=== PATIENT | male | born 1955 | race Caucasian/White ===

== ENCOUNTER 2020-12-24 16:28 | Emergency (ER) | payer OTHER ==
[~2020-12-24] VITALS: Ht 182.9 cm; Wt 93.9 kg
[~2020-12-24 16:28] MED LIST: ABILIFY 5 MG TAB5 M1 PO; ACETAMINOPHEN-1 EAC1 PO; AMBIEN5 MG PO; ASA81BEC PO; ASPIR 8181 MG; ATIVAN0.5 MG PO; AUGMENTIN 875-1 EACH PO; B12; BACTRIM DS TAB1 EACH PO; BACTROBAN22 GM TP; CALCIUM PO; CARVEDILOL12.5 MG PO; CINNAMON; CIPRO500 MG PO; CLEOCIN HCL150 MG PO; COMBIVENT RESPIM4 GM IH; FISH OIL; FLEXERIL; FLEXERIL PO; FLOMAX0.4 MG PO; HUMALOG100 UNIT/1 SUBQ; HYDROCODON-ACE1 EAC7 PO; HYDROCODONE; HYDROCODONE-AP1 EAC6 PO; IPRAT-ALBUT 0.5-3 ML INH; LATUDA80 MG PO; LEXAPRO 10 MG T10 M1; LIPITOR 20 MG T20 M1; LIPITOR80 MG PO; LISINOPRIL2.5 MG PO; LISINOPRIL5 MG PO; LOPRESSOR50 MG; MARINOL 2.5 MG2.5 M1 PO; METFORMIN HCL500 MG PO; MULTIVITAMIN; NICOTINE TRANSD21 M1; PLAVIX 75 MG TA75 MG PO; PROCARDIA XL60 MG PO; REMERON15 M2 PO; SYMBICORT160 MCG/4. INH; TESSALON PERLE100 MG PO; TRAMADOL 50 MG50 MG; TRILEPTAL600 MG PO; VALIUM5 MG; VENTOLIN HFA 1818 GM INH
[2020-12-24 17:50] LABS: HEMATOCRIT 39.5 % (42.0-52.0); HEMOGLOBIN 13.4 gm/dL (14.0-18.0); MCH 31.2 pg (26.0-34.0); MCHC 33.9 g/dL (28.0-37.0); MCV 91.9 fL (80.0-100.0); RBC 4.3 mil/uL (4.50-6.00); RDW 14.5 % (10.5-14.5); WBC 6.6 thou/uL (4.0-11.0)
[2020-12-24 17:58] LABS: CALCIUM 8.8 mg/dL (8.5-10.1); CREATININE 2.4 mg/dL (0.7-1.3); POTASSIUM 4.2 mmol/L (3.5-5.1)
[2020-12-24 18:04] LABS: ALBUMIN 3.3 g/dL (3.4-5.0); TOTAL BILIRUBIN 0.3 mg/dL (0.2-1.0); TOTAL PROTEIN 6.9 g/dL (6.4-8.2)
[2020-12-24 18:12] LABS: URINE BILIRUBIN NEGATIVE (Negative); URINE BLOOD NEGATIVE (Negative); URINE CLARITY CLEAR; URINE COLOR YELLOW; URINE GLUCOSE-RANDOM* TRACE (Negative); URINE KETONES NEGATIVE (Negative); URINE LEUKOCYTES-REFLEX NEGATIVE (Negative); URINE NITRITE-REFLEX NEGATIVE (Negative); URINE PROTEIN (DIPSTICK) 2+ (Negative); URINE UROBILINOGEN 0.2 E.U./dl (0.2-1.0)
[2020-12-24 18:18] LABS: AMP/METHAMP Negative (Negative); BARBITURATES Negative (Negative); BENZODIAZEPINES Negative (Negative); COCAINE Negative (Negative); METHADONE Negative (Negative); OPIATES Negative (Negative); PCP Negative (Negative)
[2020-12-24 18:37] LABS: BACTERIA-REFLEX None Seen /HPF (None Seen); CASTS None Seen /LPF (None Seen); CRYSTALS None Seen /LPF (None Seen); SQUAMOUS 0-3 Few /LPF (0-3); URINE RBC 1-2 Rare /HPF (NONE SEEN); URINE WBC-REFLEX 0-5 Rare /HPF (0-5)
[2020-12-25 01:04] VITALS: BP 127/70
--- NOTE | 2020-12-27 07:33 | EKG ---
[place] [address] [address] [place] [address] ELECTROCARDIOGRAM REPORT Name: KISHAN,LAILA SAUNDRA [id number] Admission: 12/24/20 Attend Phys: Discharge: 12/25/20 Date of : 55 Report #: [id number] [facility] ED Test Date: 2020-12-24 Test Time: 18:08:55 Pat Name: LAILA HOLLEY Department: Room: Gender: Video Technician: : 1955 Requested By: Ruslan Anne Order Number: [id number] MD: Nain Pak Measurements Intervals [place] Rate: 53 P: 43 IL: 215 QRS: -39 QRSD: 100 T: 40 QT: 470 QTc: 442 Interpretive Statements Sinus rhythm Borderline prolonged [place] interval Abnormal R-wave progression, early transition No previous ECG available for comparison Electronically Signed On 12-27-2020 7:33:10 WASHING MACHINE LOADER AND PULLER by Nain Pak [email or web address] <ELECTRONICALLY SIGNED> By: Nain Pak MD, [facility] 12/27/20 0733 1808 1808 Nain Pak MD, FACC /EPI
--- NOTE | 2020-12-27 07:33 | EKG ---
[place] [address] [facility] [place] [address] ELECTROCARDIOGRAM REPORT Name: LAILA HOLLEY III [facility] [id number] Admission: 12/24/20 Attend Phys: Discharge: 12/25/20 Date of : 55 Report #: [id number] [facility] ED Test Date: 2020-12-24 Test Time: 18:08:55 Pat Name: LAILA HOLLEY Department: Room: Gender: Canning Machine Operator: : 1955 Requested By: Ruslan Anne Order Number: [id number] MD: Nain Pak Measurements Intervals [place] Rate: 53 P: 43 DC: 215 QRS: -39 QRSD: 100 T: 40 QT: 470 QTc: 442 Interpretive Statements Sinus rhythm Borderline prolonged [place] interval Abnormal R-wave progression, early transition No previous ECG available for comparison Electronically Signed On 12-27-2020 7:33:19 MULTIMEDIA ENGINEER by Nain Pak [email or web address] <ELECTRONICALLY SIGNED> By: Nain Pak MD, [facility] 12/27/20 0733 1808 1808 Nain Pak MD, FACC /EPI
== END 2020-12-25 01:06 ==
LOC: ER 16:28
PROVIDERS: Nurse Practitioner Family
DX: R45.1 Restlessness and agitation (principal); Z20.822 Contact with and (suspected) exposure to COVID-19; I13.2 Hypertensive heart and chronic kidney disease with heart failure and with stage 5 chronic kidney disease, or end stage renal disease; N18.6 End stage renal disease; E11.22 Type 2 diabetes mellitus with diabetic chronic kidney disease; F31.9 Bipolar disorder, unspecified; I25.10 Atherosclerotic heart disease of native coronary artery without angina pectoris; F17.210 Nicotine dependence, cigarettes, uncomplicated; Z86.73 Personal history of transient ischemic attack (TIA), and cerebral infarction without residual deficits; Z98.890 Other specified postprocedural states; Z86.718 Personal history of other venous thrombosis and embolism; Z79.82 Long term (current) use of aspirin; Z79.4 Long term (current) use of insulin; Z79.891 Long term (current) use of opiate analgesic; Z79.899 Other long term (current) drug therapy

== ENCOUNTER 2020-12-24 17:22 | Inpatient (IN) | payer OTHER ==
[~2020-12-24] VITALS: Ht 182.9 cm; Wt 93.7 kg
[2020-12-25 02:28] VITALS: BP 151/69
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
--- NOTE | 2020-12-25 08:54 | NUR ---
12-25-2020--Paperwork reviewed for patient. Will complete an assessment when group is over this AM. Patient has DPOA paperwork in chart.
--- NOTE | 2020-12-25 10:06 | NUR ---
12-25-2020--1005--Went to get patient to do an assessment. Patient was asleep in his room.
[2020-12-25 10:10] VITALS: BP 146/61
--- NOTE | 2020-12-25 10:25 | NUR ---
12-25-2020--1030--Call to sister Didi SAMAYOA. ([phone]) Gathered a lot of information from her. She reports he is very manipulative and uses humor to get by with degrading people, making fun of them and verbal harrassment. She reports (their father) was the same way. 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 He knows the right thing to say and how/when to say it.
[2020-12-25 10:47] LABS: CHOLESTEROL 125 mg/dL (<200); HDL CHOLESTEROL 36 mg/dL (>40); LDL CHOLESTEROL 56 mg/dL (<100); TC:HDL 3.5 Ratio (Not establshd); TRIGLYCERIDE 168 mg/dL (<150); VLDL 34 mg/dL (<40)
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
[2020-12-25 17:30] VITALS: BP 146/61
--- NOTE | 2020-12-25 17:42 | NUR ---
Assumed care from shift coordinator this am. Client was in room, and yelled at staff while staff was in shift report, stating that he needed help to use the bathroom. Staff stopped to get client into his wheelchair, and find help to toilet client as shift report still needed to be passed on. Client stated that he could not walk or make it to the restroom on his own. After client was oriented in chair, staff explained to client that client needed to wait for further staff after shift report for assist and that briefs and individual clothing could be changed then. Client voiced understanding. After shift report, client was toileted with a three person assist. Client used a commode during this time. Client presented irritable and uncooperative, stating that he wanted to use his wheelchair and did not want to use facility provided wheelchair. It was explained to client that facility provided wheelchair was used for safety concerns. When doing assessments, client presented oriented to self, situation, and year. Client presented irritable, and stated that he was in pain. Tylenol and cyclobenzaprine were given at this time as ordered in MAR prn. Client denied depression and anxiety, and stated that he was not suicidal or homicidal. Client denied visual and audio hallucinations at this time. Client stated that he wanted a new pair of shoes from his sister, and that he did not want to be in facility. Client was encouraged to follow facility guidelines, and encouraged to participate while he was in care. Client lung sounds were clear; bowel sounds present. This nurse spoke to LOUISA Macias about client's pain, and medication reconsiliation. Client's medications were changed during this time to fit client needs by LOUISA Macias. Client was also put on sliding scale insulin and hydrocodone prn by Dr. Gunter in addition to evaluations by PT and OT, and Dietary being added. Client was informed of this. During dinner time, client's blood glucose presented at 123 and client did not need insulin. Client was given prn hydocodone at this time for pain of 6/10 as he stated previous pain relief was wearing off. Client was informed of new medication options again, and taught about sliding scale insulin. No further concerns at this time.
--- NOTE | 2020-12-25 19:08 | NUR ---
ASSESSMENTS AND NOTES REVIEWED BY SANJAY
[2020-12-25 20:43] VITALS: BP 101/40
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
[2020-12-26 09:46] VITALS: BP 142/71
[2020-12-26 13:46] VITALS: BP 142/71
[2020-12-26 16:33] VITALS: BP 115/55
[2020-12-26 16:34] VITALS: BP 112/51
[2020-12-26 16:35] VITALS: BP 143/81
[2020-12-26 17:17] LABS: ALBUMIN 3.2 g/dL (3.4-5.0); CALCIUM 8.7 mg/dL (8.5-10.1); POTASSIUM 4.7 mmol/L (3.5-5.1); TOTAL BILIRUBIN 0.3 mg/dL (0.2-1.0); TOTAL PROTEIN 6.6 g/dL (6.4-8.2)
--- NOTE | 2020-12-26 18:08 | NUR ---
Resummed care from overnight shift this am. Client was in bed resting at this time. When staff came for assessment, client present agitated and hostile. Client was oriented 4x during this time. Client stated that he had general weakness during this time, and stated that he could not walk. Client was assisted in repositioning in bed at this time, and assessment continued. Client denied any depression and anxiety, stating "how do you define anxiety" when asked. Staff defined the word, and client stated "no" to both. Client denied any visual and audio hallucinations as well. Client denied any si/hi at this time. Client stated that he had lower extremity pain. PRN medication was given for this at this time. Dressing changed on client's wound on heel. Metoprolol held due to pulse of 60 and client being on other blood pressure medications. When encouraged to join group, client stated that he would. Staff assisted client in putting on his prosthetic leg, and to sit up in bed. When attempting to stand up, client voiced weakness. Assistance was called to help with client. When assistance came, client refused to stand up, and stated to staff that was helping, "you fucking bitch- do you get off on yelling at old people-you niger ass bitch-fucking cunt" and continued to scream and repeat these profanties when encouraged to sit back down. Client was reoriented to environment, and asked to use more appropriate language at this time. Client decided to stay in room during this time, and declined to get up. Before lunch, staff came up to client to once again assist him. Client voiced weakness, and bp was 105 systolic at this time. LOUISA Macias was informed of this and Dr. Gunter was paged. New parameters in for BP medications per Dr. Julito Gunter, and orthostatic blood pressure was ordered. Client was assisted with this, with lying, sitting, standing bp being respectively 115/55, 112/51, and 143/81. Three person assist needed to help client stand. After this, client was helped in activity area. Dr. Gunter put in laboratory orders to confirm blood work, as client voiced previously voiced having weakness and cirrohsis of liver when bp was low. Client also voiced history of hep C, stating that he didn't think this impacted him. Client stated that he "only drank for a few years" so he "wasn't sure how he got it." Client labs drawn by laboratory this evening. Client has been in activity area resting and watching tv since late afternoon. No further concerns at this time.
[2020-12-26 20:41] VITALS: BP 112/52
--- NOTE | 2020-12-26 22:43 | NUR ---
At onset of shift pt was resting in bed awake. This shift pt was alert and oriented x3. Affect was constricted. Pt was compliant with medications and vital signs. Pt complained of feeling weak and tired. Blood sugar was 119 and vital signs were within normal limits. Dr. Gunter was made aware of this on day shift. Pt talked with automotive service writer about how he is angry and he feels that he needs medication to help control his anger. Pt talked about how he does not want to spend the holidays alone and feels this may be making him feel more depressed and more angry. Pt shared that he did "cuss out" day staff because he did not like how staff was speaking to him. Pt shared that his children don't really talk to him because he's "too much to bother with." Pt endorsed feeling depressed. RN offered support. Fall precautions are in place. Will continue to monitor.
[2020-12-27 08:00] VITALS: BP 109/59
--- NOTE | 2020-12-27 08:59 | NUR ---
NO OT NEEDED FOR ADLS. SEE OT VARIANCE TODAY
--- NOTE | 2020-12-27 10:18 | NUR ---
Nutrition: pt admitted to [facility] with agitation and seen due to wound risk. Has been cussing and verbally abusive. RD did not visit personally. Eating 75-100% of meals so far on unit, Carb controlled diet. Wound is nonhealing right foot diabetic ulcer. Pt with hx of Left BKA, CVA, bipolar, PVD. On MVI, B12, Fe, SSI, glipizide. BG 98-251. Will offer ensure max daily to support wound healing needs. Nsg voices good intake of fluids. Place as low risk.
--- NOTE | 2020-12-27 13:38 | NUR ---
12-27-2020--3984--Called [facility] to acquire fax number so updates can be sent to them. SW no in. Left message to call me back with the number.
--- NOTE | 2020-12-27 15:02 | NUR ---
HAS BEEN COOPERATIVE AND PLEASANT SO FAR THIS SHIFT. DID BECOME MILDLY UPSET/IRRITABLE WHEN REQUESTED PAIN MEDICINE AT 1000 AND INFORMED THAT IT WOULD BE APPROX 2 MORE HOURS BEFORE HE COULD HAVE IT STATING ANGRILY TO THIS NURSE "AND THEY WONDER WHY I YELL AT PEOPLE-I AM IN PAIN GODDAMMIT"REQUESTED AND RECEIVED NORCO 5/325MG PO PRN AT 1200 FOR LEFT FOOT PAIN RATED A 7 ON 1-10 SCALE-DOES REPORT GOOD IMPROVEMENT OF SYMPTOMS APPROX 45 MINUTES AFTER ADMINISTRATION RATING PAIN A 3-4. HAS BEEN ATTENDING SCHEDULED GROUPS WITH PROMPTING/SUPPORT. DENIES SI/SH/HI. APPETITE FAIR. ABLE TO TRANSFER SELF TO/FROM TO [id number] OR BED WITH SBA X1
[2020-12-27 19:51] VITALS: BP 143/78
[2020-12-27 20:10] VITALS: BP 143/78
[2020-12-27 23:23] LABS: URINE BILIRUBIN NEGATIVE (Negative); URINE BLOOD NEGATIVE (Negative); URINE CLARITY CLEAR; URINE COLOR YELLOW; URINE GLUCOSE-RANDOM* NEGATIVE (Negative); URINE KETONES NEGATIVE (Negative); URINE LEUKOCYTES NEGATIVE (Negative); URINE NITRITE NEGATIVE (Negative); URINE PROTEIN (DIPSTICK) 2+ (Negative); URINE UROBILINOGEN 0.2 E.U./dl (0.2-1.0)
[2020-12-27 23:44] LABS: BACTERIA None Seen /HPF (None Seen); CASTS None Seen /LPF (None Seen); CRYSTALS None Seen /LPF (None Seen); MUCUS 0-3 Light strn/LPF (None Seen); SQUAMOUS 0-3 Few /LPF (0-3); URINE RBC 1-2 Rare /HPF (NONE SEEN); URINE WBC 1-5 Rare /HPF (NONE SEEN)
--- NOTE | 2020-12-28 03:12 | NUR ---
PATIENT HAS BEEN IN HIS ROOM IN BED ALL SHIFT SO FAR. HE IS A/0X4. HE IS LBKA. HE HAS BEEN CALM AND COOPERATIVE. HIS ACHS CHECK WAS 184 AND LISPRO 3UNITS WAS GIVEN. PATIENT TOOK HIS OTHER MEDS WHOLE WITH WATER. PATIENT HAS DENIED PAIN TONIGHT AND DENIES SI/HI/AVH. HE HAS A HEALING DARKENED AREA ON BOTTOM OF HIS RIGHT FOOT WITH NEW ORDERS TO CLEANSE WITH NS OR WOUND BUSINESS APPLICATIONS DEVELOPER AND APPLY BETADINE TOO AND LEAVE ESTRELLA. THIS TO BE DONE IN AM. PATIENT HAS SWELLING IN HIS RIGHT ANKLE AND FOOT OF 2+ BUT SKIN IS DRY,WARM AND PEDAL PULSE 2+. PATIENT HAS HAD UA COLLECTED FOR ANALYSIS AND SENT TO LAB TO BE RAN TONIGHT. IT WILL BE CULTURED IF INDICATED. PATIENT HAS YOUNG AT BEDSIDE FOR NURSE CALL. BED IN LOW POSITION AND BED ALARM IS ON. ROUTINE ROUNDS TO ASSESS SAFETY AND STATUS OF PATIENT.
[2020-12-28 06:18] LABS: ALBUMIN 2.6 g/dL (3.4-5.0); CALCIUM 8.5 mg/dL (8.5-10.1); CREATININE 2.7 mg/dL (0.7-1.3); PHOSPHORUS 4.7 mg/dL (2.5-4.9); POTASSIUM 4.6 mmol/L (3.5-5.1)
[2020-12-28 09:24] VITALS: BP 151/75
--- NOTE | 2020-12-28 09:53 | NUR ---
Patient had breakfast in the dayroom, good appetite and fluid intake. He has been continent of urine. Patient has been calm and cooperative. He attended the morning group session and actively participated. He denies having thoughts of SI/HI. When asked if he was feeling depressed, he said "yes, I'm going to be celebrating thanksgiving alone, and they told me I have mild dementia I can't believe that, you either have it or you don't." He was having lowerback pain and phantom leg pain this morning, PRN Hydrocodone given with his morning medications. Order recieved for Miralax, given at 0920. Hyperactive bowel sounds noted. Insulin held this morning due to glucose being 101. His goal for the day is to keep his pain under control. Will continue to monitor patient.
[2020-12-28 19:44] VITALS: BP 134/67
--- NOTE | 2020-12-28 23:17 | NUR ---
PATIENT HAS BEEN CALM AND COOPERATIVE, IS ALERT AND ORIENTED X 4 AND IS COMPLIANT WITH HS MEDICATIONS. PATIENT HAS BEEN RESTING COMFORTABLY IN BED SINCE BEGINNING OF SHIFT.
[2020-12-29 09:25] VITALS: BP 118/74
[2020-12-29 10:14] VITALS: BP 118/74
[2020-12-29 11:56] VITALS: BP 133/68; BP 143/76
[2020-12-29 11:57] VITALS: BP 133/68
--- NOTE | 2020-12-29 12:30 | NUR ---
FINESSE, Dr. Black, and DISPLAYER MERCHANDISE Student Anita participated in a phone meeting with the DPOA Didi. An update was given on the Pt. 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 Dr. Black will enact the DPOA. Didi would like a copy of the enactement letter emailed to her at [email or web address]. It was also discussed that Pt will be ready for discharge Sunday. Didi requested a meeting with the Pt to discuss the DPOA enactment. SW team will follow up.
--- NOTE | 2020-12-29 13:32 | NUR ---
Adan was alert and oriented x4 this shift. He presents as calm, cooperative, and pleasant, yet withdrawn at times. He went to his room periodically throughout the day to lay down in bed and rest. He was cooperative with cares throughout the day and required minimal assistance. He had a large BM this morning and required assistance transferring to his w/c from bed. He was medication and meal compliant this shift, taking pills whole, without difficulty. He received hydrocodone PRN at 0904 with effectiveness. Pt's R foot wound was cleansed with wound cleanser, dried, and betadine was applied. Picture was also taken per orders but unable to print due to tehcnical difficulties. BP and HR were taken per Dr. Cohen, and charted appropriately. Recorders received from [facility] today. Will continue to monitor.
--- NOTE | 2020-12-29 15:28 | HC ---
[facility] [place] [place] [address] CONSULTATION Name: LAILA HOLLEY III Room #: 517-A [facility] IN ..#: [id number] Admission: 12/25/20 Attend Phys: Watson Cohen DO Discharge: Date of : 55 Report #: [id number] THIS REPORT FOR: cc: Tha oFster MD, Mohsen MD Stephens, Thad A. MD ~ DATE OF SERVICE: 12/27/2020 WOUND CARE CONSULTATION PERSONAL PHYSICIAN: Dr. Foster. CHIEF COMPLAINT: Right foot ulceration. HISTORY OF PRESENT ILLNESS: This is a 65-year-old white male who resides in a half-way, who recently has been using a wheelchair secondary to a previous left BKA. The patient has now developed a nonhealing ulcer on the plantar aspect of his right foot. The patient himself is an extremely poor historian. The patient does supposedly complained of pain in the bottom aspect of his right foot. The patient was actually admitted to the Geriatric Psych Unit secondary to behavioral changes. The nursing staff deny any other associated wounds. PAST MEDICAL HISTORY: Significant for diabetes mellitus, previous left BKA secondary to previous ulcer, nonhealing ulceration on the plantar aspect of the right foot. Peripheral neuropathy, previous CVA with right-sided hemiparesis, bipolar disease and COPD. CURRENT MEDICATIONS: Multiple, reviewed the patient's medication list. DRUG ALLERGIES: None. SOCIAL HISTORY: The patient smokes half pack of cigarettes daily. Currently resides in a half-way. FAMILY HISTORY: Not pertinent to current medical condition. REVIEW OF SYSTEMS: Unobtainable due to the patient's mildly confused state at this time. PHYSICAL EXAMINATION: VITAL SIGNS: Temperature 36.3, pulse 66, respirations 18, BP 151/75. GENERAL: This is an alert and oriented x 1 person, but not place or time, elderly black male who is in no obvious distress. HEENT: Normocephalic, atraumatic. Mucous membranes are somewhat dry. Pupils are round. Sclerae white. NECK: Without JVD. [facility] [address] [place] [address] CONSULTATION Name: KISHANLAILA [facility] Room #: 517-A [facility] [place] .R.#: [id number] Admission: 12/25/20 Attend Phys: Watson Cohen DO Discharge: Date of : 55 Report #: [id number] LUNGS: Clear. HEART: Regular. ABDOMEN: Soft, nontender. EXTREMITIES: The patient moves all extremities without difficulty. The patient has a BKA on the left. The plantar aspect of the right foot has an ulceration, which is a mix of granulation tissue and slough. Periwound callus. There is no significant tunneling or undermining. There is moderate serosanguineous drainage noted without significant odor. No other associated ulcerations are noted. Left BKA stump is intact. NEUROLOGIC: Cranial nerves 2-12 grossly intact. Motor and sensory grossly intact. LABORATORY DATA: Albumin 2.6. IMPRESSION: 1. Diabetic ulcer of the right lateral foot. 2. Type 2 diabetes. 3. Chronic pain syndrome. 4. Hypertension. 5. Bipolar disease. 6. History of cerebrovascular accident. 7. History of left below-knee amputation. 8. Protein-calorie malnutrition -- very mild and albumin of 3.2. PLAN: We will start Betadine and leave it open to air to the right and lateral foot ulceration. Have the patient elevate his foot as much as possible. Psychiatry is following the patient for the bipolar disease. We should maximize the patient's oral protein supplementation for healing. We will continue all other current medications. Appreciate ability to consult. <ELECTRONICALLY SIGNED> By: Adrian Zee MD 12/29/20 1528 1625 [id number] Adrian Zee MD /nt
--- NOTE | 2020-12-29 20:26 | NUR ---
AT ABOUT 1945 PATIENT CAME TO DOOR AND STARTED TO COME IN THE HALLWAY, I ADVISED PATIENT THATHE WAS IN QUARRANTINE AND NEEDED TO STAY IN ROOM, PATIENT BEGAN TO YELL AT ME SAYING NO ONE HAS CHECKED ON HIM ALL DAY, I TRIED TO EXPLAIN THAT WE JUST HAD SHIFT CHANGE AND I WAS UNSURE OF WHAT HAPPEN TODAY BUT PATIENT CONTINUE TO YELL AND ARGUE WITH ME, WANTED HIS MEDS AND A PAIN PILL WHICH I WENT AND GOT BUT THEN PATIENT STILL WANTED TO ARGUE AND WOULD NOT BACK UP IN ROOM SO I COULD COME IN AND GOWN UP, CALLED [facility] AND TOLD HER WHAT WAS GOING ON AND SHE ADVISED I CALL SECURITY WHO CAME UP AND TRIED TO TALK TO PATIENT BUT HE WANTED TO ARGUE WITH THEM ALSO. PATIENT FINALLY BACKED UP IN ROOM SO I COULD GOWN UP AND HS MEDICATION GIVEN WELL 3 UNITS OF INSULIN FOR BG OF 176.
[2020-12-29 23:09] VITALS: BP 173/83
[2020-12-30 09:34] VITALS: BP 165/71
--- NOTE | 2020-12-30 11:41 | NUR ---
Alert and orientated X4. Calm and cooperative. Able to stand with assistance. Denies SI/HI. States he fell this AM and that his "liver" is hurting. Breath sounds clear. Sporadic, congested cough. No s/o nasal flaring or retractions, no increased work of breathing. Reg HR auscultated. Color pink with brisk capillary refill and palpable peripheral pulses. HTN this AM 170s, will recheck around 12. +1 edema in R leg. Yellow urine per commode. Active bowel sounds over soft, rounded abdomen. Scab on R foot.
[2020-12-30 13:30] VITALS: BP 149/78
[2020-12-30 16:15] VITALS: BP 140/73
[2020-12-30 16:17] VITALS: BP 129/76
[2020-12-30 16:18] VITALS: BP 165/71
[2020-12-30 19:13] VITALS: BP 128/66
--- NOTE | 2020-12-30 20:30 | NUR ---
Patient care resummed, patient located in his room lying low-fowlers in bed. Patient was reported as COVID+ per results on 12/29/20 so isolation precautions were in place. Patient appears calm, cooperative, pleasent, but did verbalize being upset with the staff prior to shift change. Patient denied SI/HI/AVH, depression, and anxiety, A&O*4, 2+ pitting edema in LRE, Left BKA with prosthsis, limb alert with right arm after previous stroke. Lungs auscultated with BLL presenting diminished, Abdomen soft, nondistended with bowel sounds present*4. Patient stated he was in pain, rating as moderate pain. Pain located mainly in the Right Flank, 5/325mg Hydrocodone was given. Pain also stated being in the Right leg which pt. stated was nothing like his side pain. Patient informed DIRECTOR WORK he had fallen during the night, attempting to go to the restroom on his commode. Patient stated he got up from bed after ringing his "call-courtney" for an extended time and no one came, he couldn't wait any longer so he attempted walking by himself. Patient states "I got up, and started walking and accidently peed a little on the floor," then states "after using the bathroom on the way back I fell landing on his Right side." DIRECTOR WORK continued assessment and noted a 2.5inch bruise on the Right Flank, exactly below the bottom rib. When DIRECTOR WORK examined the area, patient griminced and tensed up when palpated. Also noted during skin assessment was a fresh looking skin tear to the Right elbow and Right knee. As well as a current diabetic ulcer to the Right ankle. DIRECTOR WORK notified of findings and DIRECTOR WORK was informed once the pt's PCR results came in to noitify him so we can move forward with tests. @6020 was paged in regards to PCR results. DIRECTOR WORK recieved call back @1346, a Chest PA/Lateral/Routine X-RAY was ordered, along side a onetine dose of Hydrocodone 7.5/325mg for severe pain. Pt reported pain rated as a 9 in Right flank, and was located in bed in the position in tears. was then paged @0256 and again at @1416, DIRECTOR WORK recieved call back @ 1420. Dr.Karu spanglereed with 's orders and pending results of XRAY will define how we proceed. DIRECTOR WORK then notified Nurse Acetylene Cutter Suzette of current situation on personal cell phone on how to proceed with documentation. DIRECTOR WORK was informed to fill out a Verge Report and that Camera Footage will be reviewed. Patient's V/S taken multiple times throughout day for possible changes and VSS. Orthostatic V/S were also taken. Patient did continue to report SOB and Pain rating of an 8/9. Patient was ordered a PRN Albutoral Sulfate 18g [id number], Hydrocodone 7.5/325mg [id number], and a onetime dose of 30mg Toridol IM for Pain management and breathing comfort. Patient was able to finally rest comfortably after the IM Toridol was given;per 's Telephone order. Wound care was given to Right ankle and photos taken for chart. Will continue to monitior this patient for infection, safety, and behvaviors.
--- NOTE | 2020-12-31 05:12 | NUR ---
Assumed care of patient at 1900. Patient calm et cooperative this shift. Isolated in room most of shift. Ambulates via w/c. VSWNL. Health assessment with no abnormalities other than noted previously. Patient received Hydrocodone 7.5/500mg PRN at 0510 this shift for flank pain 09/14. Will assess response at later time. Patient denies SI/HI/AVH at present time. Extra large bowel movement recorded this shift. Patient had previously stated that his bowel movements were santoyo in color but FEDERAL JUDGE states no abnormal color noted to bowel movement this shift. Currently resting in bed with eyes closed. Will continue to monitor per unit protocol.
--- NOTE | 2020-12-31 07:44 | NUR ---
12-30-2020--1245--Saw patient in Dayroom. i asked how he was and he stated "hurting". I asked if it was his leg and he stated no it was his ribs. I asked if he fell and he stated two days ago. I advised patient to let RN know about the pain. He was agreeable to this. I will also mention it to his RN.
--- NOTE | 2020-12-31 07:50 | NUR ---
12-31-2020--0750--Talked to patient's RN and told her patient had told me his ribs hurt. She stated he told her also.
[2020-12-31 09:17] VITALS: BP 125/67
[2020-12-31 09:53] VITALS: BP 125/67
--- NOTE | 2020-12-31 10:00 | NUR ---
12-31-2020--1000--Call from Didi (DPOA) wondering if the doctor had enacted the DPOA and if she needed to contact the NH and she stated 1500 will be okay on 01-03-2021 for the family meeting. I explained that I had been sendng updates to the [place] and she wouldn't need to call them. I explained she can get specific notes by going through medical records, but the DC will have medication, follow up, diagnosis on it and she will get a copy. Didi's number is [phone].
--- NOTE | 2020-12-31 10:23 | NUR ---
12-31-2020--1025--Call to DPOA to advise letter enacting the DPOA has been written and I will email it to her: [email or web address]. It was e-mailed. She also provided her mailing address: [address] [facility] [address]. Family meeting scheduled with Didi for 01-03 at 3:00 PM. Updates will be sent to NH and I will let them know the prospective DC date 01-03 and determine what time they want.
--- NOTE | 2020-12-31 10:54 | NUR ---
RESUMMED CARE FROM OVERNIGHT SHIFT THIS AM, PATIENT IN DAY ROOM SITTING QUIET. PATIENT ATE BREAKFAST TOOK MEDICATION WITHOUT INCIDENCE, PATIENT ALERT ORIENTED TIMES 4. PATIENT DENIES SI/HI/AH/VH AT PRESENT, PATIENT STATES HE HAS DEPRESSION AND ANXIETY. HE IS UNSURE WHY HE FEELS THIS WAY PATIENTS ABDOMEN SOFT; BOWEL SOUNDS PRESENT. PATIENTS LUNGS CLEAR PATIENT HAS NOT DISPLAYED ANY BEHAVIORS. WILL CONTINUE TO MONITOR PATIENT FOR SAFEY AND BEHAVIORS.
[2020-12-31 19:35] VITALS: BP 142/84
--- NOTE | 2021-01-01 05:35 | NUR ---
Assumed care of patient at 1900. Pt calm et cooperative this shift. Took all medications whole without difficulty. Ambulates with assistance of w/c. OLE. Health assessment with no abnormalities other than noted previously. HS blood sugar of 179 et was given 3 units of Lispro per sliding scale. PRN Hydrocodone 7.5/500mg given this shift at 2030 et 0520 due to pain of 8/10. Partial relief of pain symptoms one hour after administration each time. Pt denies SI/HI/AVH at present time. Currently resting in bed with eyes closed. Will continue to monitor per unit protocol.
[2021-01-01 09:34] VITALS: BP 155/69
[2021-01-01 10:39] VITALS: BP 155/69
--- NOTE | 2021-01-01 13:51 | NUR ---
Check in with patient - Patient expressed wanting to take a shower and get a shave. The patient stated he is [place] and being clean cut is part of the culture. The patient stated he hasn't gotten angry as he has done so in the previous placement; however, he expressed getting frustrated with asking about the shower and shave and not getting any results. The patient feels he is listened to when he is angry. The SW talked with the patient about having the right to be angry but expressing it appropriately. The patient is unsure if he will return to the prior placement but states that he does not want to.
--- NOTE | 2021-01-01 17:38 | NUR ---
Adan was alert and oriented x4 this shift. He presented as calm and cooperative yet voiced multiple complaints and frustrations since being admitted to the hospital. He was medication and meal compliant this shift, without difficulty. He wished to shower and shave this shift which pt was educated would be done today. Pt was shaved but due to pt making multiple inappropriate comments to female staff, staff waited for male tech to get here mid shift to give pt a shower. Pt wished to apply his lidocaine patch after the shower as it would come off otherwise, therefore lidocaine patch was applied late this afternoon after pt's shower. Pt did not receive insulin this shift as BG's were all below 150. Pt guaifenesin due to c/o sore throat. Pt had c/o generalized pain due to his recent fall and chronic pain; pt received PRN hydrocodone with effectiveness at 1212 this shift. Pt otherwise did not voice any physical complaints, will continue to monitor.
[2021-01-01 18:23] VITALS: BP 116/66
--- NOTE | 2021-01-02 05:18 | NUR ---
Assumed care of patient at 1900. Pt calm et cooperative this shift. Took medications whole without difficulty. Ambulates with assistance of w/c. OLE. Health assessment with no abnormalities other than previously noted. Continues to have productive cough. Hydrocodone 7.5/500mg PRN given along with Guafenesin tablet PRN at 0230 this shift. BS 202 at 1850. Pt given 4u of Lispro per sliding scale. Pt denies SI/HI/AVH at present time. Currently resting in bed with eyes closed. Will continue to monitor per unit protocol.
[2021-01-02 07:11] VITALS: BP 132/86
[2021-01-02 07:29] VITALS: BP 93/71
[2021-01-02 10:17] VITALS: BP 132/88
--- NOTE | 2021-01-02 10:52 | NUR ---
10:53AM - Updates (01/01 & 01/02) faxed to [employer]
--- NOTE | 2021-01-02 12:11 | NUR ---
Resummed pt care from lease administrator this am. Client was in activity area eating breakfast and watching tv this morning. When asked orientation questions, client presented as talkative, and answered all questions with orientation being x4. Client voiced having some depression due to the holiday season, stating that he missed his family and missed having large get togethers. Client did not voice anxiety at this time. Client voiced pain at 7/10, and stated that he was having breakthrough pain- last dose of hydrocodone before this was 238 am. Client was given acetaminophen for this, which provided partial pain relief. Client denied any suicidal or homicidal ideation. Client denied any visual or audio hallucinations at this time. Lungs sounds were clear with a non-productive cough. Cepacol was given for this. Bowel sounds present. Last BM 01/02/21. During assessment, client was asked to give full attention to assessment, and to stop flirting with staff. Client stated "I wish these cameras weren't here- I don't want to get you in trouble" "I'm [place], and we're known for being romantic" "I always like the girls younger than me." Client was asked to stop inappropriate comments, and pt education was given on appropriate behavior. Client needs reinforcement at this time, as client has continued statements about wishing there was a lack of cameras and did not have shirt on when this staff entered room, declining to put one on when asked. Client was given hydrocodone and cepacol for pain and cough @1130. Prn inhaler was used as well prior. Cough medication given to help relieve cough at lunch time as well. Client voiced concerns during lunch that he did not like the menu, and asked to change menu. Client was informed that 1130 was too late to change menu, but that staff could provide box lunch and snacks. This was provided to client at this time, and client was asked to fill out dinner menu in advance so that dinner would be called in beforehand to help accomodate needs. When staff was attempting to write note, and put in dinner menu, client commented the following: "I have to go home with you; you aren't right." "I can't help it." "It's your fault." And stuck tongue out at staff at this time, at 12:36, while this STOCK OR DELIVERY CLERK was writing note. Client was asked to voice appropriate behavior again and encouraged to watch television in the day room as a distraction. Client voiced, "Doctor Nina- did I already have my cough medication" while this nurse asked him to go to activity area. Client was corrected, and informed that this staff was STOCK OR DELIVERY CLERK staff, not MD. Client stated "I know; I'm kidding." Client was also informed of the medications he has already gotten for cough and sore throat. Client voiced understanding and went to go watch television after this. Dinner menu was called in by Investment Banker shortly after this. No further concerns.
--- NOTE | 2021-01-02 14:05 | NUR ---
During group, patient complained of having chest pains. SW informed nursing staff who came checked his vitals. After vitals were checked, the patient talked to the SW about being frustrated with the nursing staff.
[2021-01-02 19:50] VITALS: BP 132/88
--- NOTE | 2021-01-03 02:03 | NUR ---
PATIENT CARE WAS RESUMED AT 1900. HE IS ALERT AND ORIENTED. ABLE TO VERBALIZE HIS NEEDS. HE IS CONTINENT OF BOWEL AND BLADDER. AMBULATES WITH WALKER. HE DEINES AVH/SI/HI. HE IS A MAX ASSIST WITH CARE. HE C/O PAINS AND PRN PAIN MED GIVEN WITH SOME GOOD EFFECT. ABD IS SOFT, LUNGS ARE CLEAR ON AUSCULTAION. ABD IS SOFT AND NONE TENDER. BED IS LOCKED, LOW AND ALARMED. TOOK HIS MEDS WHOLE.
[2021-01-03 08:36] VITALS: BP 155/74
--- NOTE | 2021-01-03 10:08 | NUR ---
Followup; eating consistently >75% of meals. BG well controlled and wts are stable around 206 lb. Low nutrition risk
--- NOTE | 2021-01-03 10:51 | NUR ---
RT Progress Note- Sen has been active in the therapeutic milieu as well as recreation therapy groups. He does not resist participation and is cordial with peers on unit. Sen has been able to identify that his responses to anger are not appropriate and has improved in insight and ideas of ways to cope and respond. DIRECTOR OF PUBLIC HEALTH will continue to encourage progress and participation throughout his admission.
--- NOTE | 2021-01-03 15:22 | NUR ---
ALERT AND ORIENTED X4 TODAY-SOME MILD IRRITABILITY/AGITATION IN THE FORM OF VERBALIZING TO NURSING STAFF FRUSTRATION OVER UNIT/HOSPITAL RULES "NICOTINE AND CAFFEINE ARE ALL I NEED"DENIES SI/SH/HI. DOES REPORT FEELING "A LITTLE PEEVED" D/T BELIEVING HE WAS BEING DISCHARGED TODAY. COTNIUING TO REPORT GENERALIZED FOOT PAIN RATED 7-10 PRIOR TO RECEIVING NORC0-DECREASING TO BELOW 5 AFTER ADMINISTRATION OF PRN NORCO 7.5/325 AT 0745 AND REPEATED AT 1455
--- NOTE | 2021-01-03 15:28 | NUR ---
REPORTED BY PT TO BE OBSERVED TRANSFERING SELF FROM WC TO BED-PT DID CONFIRM THIS WHEN ASKED BY NURSING STAFF STATING "I DON'T WANT TO BOTHER YOU GUYS-I'M GETTING STRONGER" REMINDED OF RECENT REPORTED FALL ON DOCUMENT CONTROL COORDINATOR AND FALL PRECAUTIONS INCLUDING ASKING FOR ASSISTANCE BEFORE TRANSFERING TO/FROM BED REVIEWED. PT ALERRT AND ORIENTED X4 STATES HE UNDERSTANDS -DENIES QUESTIONS.
--- NOTE | 2021-01-03 15:33 | NUR ---
01-03-2021--1500--Family meeting with patient's Didi SAMAYOA, the doctor, the [facility] general intern and this worker. Discussed possible DC Sunday, . or Sunday depending on berhaviors the next few days. Updates were sent on Sunday and I will send updates on Sunday to [facility].
[2021-01-03 19:41] VITALS: BP 155/69
[2021-01-03 19:45] VITALS: BP 155/69
--- NOTE | 2021-01-04 01:08 | NUR ---
PATIENT AWOKE MOANING AT 0025. WHEN I ASKED WHAT WAS WRONG HE STATES HE DOESN'T FEEL LIKE HE CAN GET ENOUGH AIR AND IS HARD TO BREATHE. I ELEVATED PATIENT'S HOB MORE AND LUNGS SOUND CLEAR BUT CAN HEAR CONGESTION IN AIRWAYS THAT MOVES AND CLEARS SOME WITH COUGH. 02% IS 98 AND PULSE IS 64. SAT PATIENT UP ON SIDE OF BED AND RELISTENED TO LUNGS. LUNG BASES SOUND CLEAR. ALBUTEROL INHALER 2 PUFFS GIVEN TO PATIENT AFTER INSTRUCTION ON HOW AND WHEN TO INHALE THE MED. PATIENT UP TO BSC AND PATIENT SAT FOR 15 MINUTES STILL FEELING CONGESTED. PATIENT GIVEN GUAFENISIN PRN TAB AT THIS POINT. PATIENT SAT A FEW MORE MINUTES AND PASSED SOME GAS AND URINATED. PART OF PATIENT'S ISSUE IS THAT HIS RIGHT RIBS ARE BRUISED FROM A FALL PREVENTING HIM FROM COUGHING DEEPLY WITH OUT PAIN. GAVE PATIENT A PILLOW AND DEMONSTRATED AND INSTRUCTED HIM ON HOW TO HOLD PILLOW AGAINST HIS RIGHT RIBS AND CHEST WHEN COUGHING TO HELP SUPPORT HIS SORE RIBS AND HELP HIM COUGH MORE DEEPLY AND EFFECTIVELY. PATIENT ASSISTED BACK TO BED AND HOB UP. PATIENT HAS NOT HAD LABORED BREATHING THRU ALL OF THIS. ENCOURAGED WATER TO HELP THIN SECRETIONS WELL HELP GUAIFENESIN TO WORK MORE EFFECTIVELY. BED IN LOW POSITION AND BED ALARM IS ON. CONTINUING TO MONITOR.
--- NOTE | 2021-01-04 03:39 | NUR ---
PATIENT AWOKE WITH C/0 OF RIGHT SIDE RIB PAIN AND RIGHT FOOT PAIN. NORCO TAB GIVEN PO FOR PAIN OF 8 OUT OF 10. PATIENT BACK TO BED.
[2021-01-04 08:05] VITALS: BP 169/81
[2021-01-04 08:58] VITALS: BP 169/81
[2021-01-04] MEDS ORDERED: FLOMAX0.4 MG PO (10:15)
[2021-01-04] MEDS ORDERED: BACLOFEN 10MG T10 MG PO (10:15)
[2021-01-04] MEDS ORDERED: Nicotine Transdermal TRANSDERM (10:16)
[2021-01-04] MEDS ORDERED: IRON325 PO (10:16)
[2021-01-04] MEDS ORDERED: CLOPIDOGREL75 MG PO (10:17)
[2021-01-04] MEDS ORDERED: LIPITOR80 MG PO (10:20)
[2021-01-04] MEDS ORDERED: METOPROLOL SUCC50 MG PO (10:20)
[2021-01-04] MEDS ORDERED: NIFEDIPINE ER30 M1 PO (10:21)
[2021-01-04] MEDS ORDERED: SPIRONOLACTONE25 M1 PO (10:22)
[2021-01-04] MEDS ORDERED: ADULT LOW DOSE81 MG PO (10:22)
[2021-01-04] MEDS ORDERED: DIVALPROEX SOD500 M1 PO (10:23)
[2021-01-04] MEDS ORDERED: NEURONTIN 300M300 M2 PO (10:23)
[2021-01-04] MEDS ORDERED: MIRALAX17 GM PO (10:24)
[2021-01-04] MEDS ORDERED: VITAMIN B-12500 MCG PO (10:25)
[2021-01-04] MEDS ORDERED: CENTRUM SILVER1 EAC4 PO (10:26)
[2021-01-04] MEDS ORDERED: METFORMIN HCL500 MG PO (10:40)
--- NOTE | 2021-01-04 11:53 | NUR ---
PATIENT CARE ASSUMED AT 0700 - WAS UP SITTING IN DAY ROOM AT CHANGE OF SHIFT. ALERT AND ORIENTED X 4 - RESPONSIVE TO QUESTIONS ADDRESSED TO HIM. STATED HAD MEMORY ISSUES AT TIMES - FEARS HE HAS DEMENTIA. STATED NON S UICIDAL AND NOT HAPPY ABOUT RETURNING TO FACILITY HE WAS AT. CLAIMS CARE IS POOR THOUGH FACILITY RATED HIGH. CLAIMS THIS CAUSES ALOT OF IRRITABILITY ON HIS PART. STATED FELL LAST WEEK ON RIGHT SIDE AND HIP AND BACK DISCOMFORT STILL PERSISTS. FEELS LIDOCAINE PATCH WORKS FOR SHORT TIME ALONG WITH TYLENOL. SOCIAL IN CONVERSATION AND ANNUAL GIVING DIRECTOR MEMORY VERY GOOD - STRUGGLES WITH SHORT TERM THOUGH AND ADMITS TO THIS. PATIENT MANUVERS AROUND IN WHEELCHAIR AND ABLE TO TRANSFER SELF TO COMMODE WITHOUT STAFF HELP. DID NEED ASSISTANCE WITH HYGIENE AFTERWARDS. PATIENT COMPLIANT WITH MEDICATIONS TAKING THEM WHOLE. BLODO SUGARS WERE WITHIN NORMS BOTH FOR BREAKFAST AT 97 AND 123 AT LUNCH. HAS BEEN TOLD DUE TO DISCHARGE TODAY AT SOMETIME PER DR. SANCHEZ. APPEARS PLEASED WITH PROSPECT.
--- NOTE | 2021-01-04 13:27 | NUR ---
FINESSE attempted to contacted the DON and admission at [facility] [place] concerning discharge. FINESSE left several messages and has not yet recieved a call back from anyone at the facility. FINESSE set up transportation with [place] for 1500 back to [facility]. This information was given to the cosmetic account coordinator at [facility]. Discharge documents were faxed to the facility.
--- NOTE | 2021-01-04 17:30 | NUR ---
PATIENT TRANSPORTED TO [facility] BY [facility] - PICKED UP AT 17:30 ESC[address] DOWN TO [facility] BY DR. SANCHEZ. ALL PAPERWORK AND DOCUMENTATION SENT WITH TRANSPORT. CALLED EVGENY AT [facility] WITH REPORT AT 1430. PATIENT HAS ALL BELONGINGS PLUS ELECTRIC MOTORIZED WHEELCHAIR WITH HIM WHEN DEPARTING. ADVISED SISTER GLENDA OF DISCHARGE WELL.
--- NOTE | 2021-01-05 09:09 | D ---
[facility] [place] [place] [address] DISCHARGE SUMMARY Name: LAILA GUTIERREZ III Room #: 517-A [facility] IN M.R.#: [id number] Admission: 12/25/20 Attend Phys: Watson Cohen DO Discharge: 01/04/21 Date of : 55 Report #: [id number] THIS REPORT FOR: cc: Tha Foster MD, Mohsen MD Kerstein, Andrew H. DO ~ DATE OF SERVICE: 01/04/2021 INPATIENT PSYCHIATRIC DISCHARGE SUMMARY ATTENDING PSYCHIATRIST: Watson Cohen D.O. SUPERVISOR INSPECTION AND TESTING: Watson Campa M.D. DISCHARGE DIAGNOSES: 1. Major neurocognitive disorder, likely due to cerebrovascular disease with behavioral disturbance, improved. 2. Diabetes mellitus, on metformin with Accu-Cheks now. 3. History of left chest bruise. 4. Chronic kidney disease, stage 4 with a creatinine ranging in 2.7-3.0. 5. Peripheral vascular disease, status post left below-knee amputation. 6. Hypertension. 7. Nonhealing right foot diabetic ulcer, wound care ongoing. 8. Chronic pain syndrome, on [place] in the hospital. 9. History of COVID positive result, which was negative on retest. The patient will be discharging back to [facility] for long-term care. 10. History of cirrhosis by history. Psychiatric and medical care per receiving facility. DIET: As follows, 1800-calorie diabetic diet. He gets an Ensure Max at lunch daily. ACTIVITY: Recommending trial of physical therapy at nursing facility. He uses a prosthesis on his left foot and a walker. He is at least min to moderate assist with his transfers and gait. DISCHARGE MEDICATIONS: DuoNeb 3 mL inhalation 4 times daily p.r.n. shortness of air, tamsulosin 0.4 mg oral daily for BPH, urinary retention. Baclofen 10 mg oral daily for muscle spasm. He was given a nicotine transdermal 21 mg patch, which I did prescribe, recommending smoking cessation, but the patient has declined. Ferrous sulfate 325 mg oral daily for supplementation, Plavix 75 mg oral daily for clot prevention, atorvastatin 80 mg oral at bedtime for hyperlipidemia, metoprolol succinate 50 mg oral daily for hypertension and heart. Nifedipine ER 90 mg oral daily for hypertension, hold metoprolol for less than 60 beats per minute. Spironolactone 25 mg oral daily for potassium supplementation diuresis; aspirin 81 mg oral daily for heart protection; [address] [address] DISCHARGE SUMMARY Name: LAILA GUTIERREZ III Room #: 517-A [facility] IN [facility].#: [id number] Admission: 12/25/20 Attend Phys: Watson Cohen DO Discharge: 01/04/21 Date of : 55 Report #: [id number] Depakote sodium 1500 mg oral daily for impulse control; gabapentin 300 mg oral twice daily for neuropathy; MiraLax 17 g oral twice daily for bowel motility, hold if diarrhea; cyanocobalamin 1000 mcg oral daily for supplementation; multivitamin oral daily. LABORATORY DATA: Most recent labs, on 12/24, white count 6.6, H and H 13.4 and 39.5, platelet count 210. Most recent chemistries from 12/28, sodium 135, potassium 4.6, chloride 104, bicarbonate 20, anion gap 11, BUN 34, creatinine 2.7, estimated GFR 24. Hemoglobin A1c 7.0, calcium 8.5, phosphorus 4.7, AST 17, ALT 30, alkaline phosphatase 116. Ammonia level 13 on 12/26. Additional information, albumin low at 2.6. He is malnourished. Lipids, triglycerides 168, cholesterol 125, LDL 56, HDL 36. TSH 2.269. Urinalysis as mentioned on 12/27 had several positives including protein, white blood cell counts. No bacteria. No culture was triggered. Toxicology this admission, Depakote level was low on 12/31. He was on 750 mg of the ER, so I increased it to 1500. COVID-19 serology was not detected on 12/30, positive on 12/29. REASON FOR ADMISSION: Back around 12/25, a 65- year old male sent out from [facility]. He was brought there on 10/31. He reportedly threw hot coffee after being upset about staff treatment of him, the temperature and the food quality at the facility. HOSPITAL COURSE: The patient was admitted to Geriatric Psychiatry Unit. Cognitive screening was done. The patient is in the teens on the SLUMS. His DPOA was enacted during the admission. The sister, Didi Gutierrez, is his decision maker. During the admission, the patient did fairly well. He had occasional inappropriate verbal remarks, was not physically assaultive. Did participate with physical therapy, is quite deconditioned. I elected to utilize mainly Depakote given his vascular risk factors, his significant stroke dated back approximately 2 years ago. On the day of discharge, the patient was not suicidal or homicidal. PHYSICAL EXAMINATION: VITAL SIGNS: Temperature 36.2, pulse 64, respirations 18, BP 169/81, O2 sat 100%. MUSCULOSKELETAL: He has a left BKA, not really ambulatory. MENTAL STATUS EXAMINATION: This is a well-developed, well-nourished male apparently stated age. Attention fair. Concentration limited. Speech normal rate, rhythm, and tone. Thought process: Linear and goal directed. Thought content: Focused on the present. Denied suicidal or homicidal ideation. No auditory or visual tactile hallucinations. Mood and affect is congruent, euthymic, fair range, okay. Memory not formally tested, known to be impaired. Insight limited. Judgment limited. Fund of knowledge, no greater than average. [facility] [address] [place] [address] DISCHARGE SUMMARY Name: LAILA GUTIERREZ III Room #: 517-A DIS IN ..#: [id number] Admission: 12/25/20 Attend Phys: Watson Cohen DO Discharge: 01/04/21 Date of : 55 Report #: [id number] Prognosis for this patient is guarded given his numerous medical morbidities and having neurodegenerative disorder at age 65. <ELECTRONICALLY SIGNED> By: Watson Cohen DO 01/05/21 0909 [id number] 36 Watson Cohen DO /nt
== END 2021-01-04 17:30 | DRG 885 ==
LOC: SBH
PROVIDERS: Hospitalist; Internal Medicine; Internal Medicine Nephrology; Nurse Practitioner; ADMIT Psychiatry & Neurology Psychiatry; ATTEND Psychiatry & Neurology Psychiatry
DX: F31.9 Bipolar disorder, unspecified (principal); F01.51 Vascular dementia, unspecified severity, with behavioral disturbance; N18.4 Chronic kidney disease, stage 4 (severe); E44.0 Moderate protein-calorie malnutrition; I69.351 Hemiplegia and hemiparesis following cerebral infarction affecting right dominant side; R45.1 Restlessness and agitation; L97.519 Non-pressure chronic ulcer of other part of right foot with unspecified severity; G89.4 Chronic pain syndrome; Z20.822 Contact with and (suspected) exposure to COVID-19; E11.42 Type 2 diabetes mellitus with diabetic polyneuropathy; J44.9 Chronic obstructive pulmonary disease, unspecified; F17.210 Nicotine dependence, cigarettes, uncomplicated; I12.9 Hypertensive chronic kidney disease with stage 1 through stage 4 chronic kidney disease, or unspecified chronic kidney disease; E11.621 Type 2 diabetes mellitus with foot ulcer; K74.60 Unspecified cirrhosis of liver; E11.51 Type 2 diabetes mellitus with diabetic peripheral angiopathy without gangrene; E11.22 Type 2 diabetes mellitus with diabetic chronic kidney disease; F41.9 Anxiety disorder, unspecified; N40.0 Benign prostatic hyperplasia without lower urinary tract symptoms; S20.212A Contusion of left front wall of thorax, initial encounter; Z89.512 Acquired absence of left leg below knee; Z68.28 Body mass index [BMI] 28.0-28.9, adult; Z79.82 Long term (current) use of aspirin; Z79.899 Other long term (current) drug therapy; Z83.3 Family history of diabetes mellitus; X58.XXXA Exposure to other specified factors, initial encounter; Y93.89 Activity, other specified; Y92.89 Other specified places as the place of occurrence of the external cause; Y99.8 Other external cause status
CPT/HCPCS: 10880